=== PATIENT | male | born 1930 | race Caucasian/White ===

== ENCOUNTER 2017-05-14 13:01 | Emergency (ER) | payer MEDICARE ==
[~2017-05-14] VITALS: Ht 170.2 cm; Wt 63.5 kg
[2017-05-14] MEDS ORDERED: Ampicillin/Sulbactam Sod 3 GM in NS 110 ML IV SCH (13:15)
[2017-05-14] MEDS ORDERED: Albuterol/Ipratropium 3ml neb HHN ONE (13:30)
[2017-05-14] MEDS ORDERED: Unasyn 3gm Inj ONE (13:32)
[2017-05-14 13:41] VITALS: BP 134/78
[2017-05-14] MEDS ORDERED: METOPROLOL TART25 MG ORAL (14:00)
[2017-05-14] MEDS ORDERED: GABAPENTIN100 MG ORAL (14:00)
[2017-05-14] MEDS ORDERED: FUROSEMIDE20 M1 ORAL (14:00)
[2017-05-14] MEDS ORDERED: TYLENOL EXTRA500 MG ORAL (14:00)
[2017-05-14] MEDS ORDERED: DULCOLAX10 MG RC (14:00)
[2017-05-14] MEDS ORDERED: SORBITOL2000 ML IR (14:00)
[2017-05-14] MEDS ORDERED: MINERAL OIL EN133 ML RC (14:00)
[2017-05-14] MEDS ORDERED: SYMLIN600 MCG/1 SUBQ (14:00)
[2017-05-14] MEDS ORDERED: DOCUSATE SODIU100 M2 ORAL (14:00)
[2017-05-14] MEDS ORDERED: SENNA8.6 M2 PO (14:00)
[2017-05-14] MEDS ORDERED: ZANTAC150 MG ORAL (14:00)
[2017-05-14] MEDS ORDERED: LIPITOR40 MG ORAL (14:00)
[2017-05-14] MEDS ORDERED: PREDNISONE10 MG ORAL (14:00)
[2017-05-14] MEDS ORDERED: ALBUTEROL2.5 MG/3 M INH (14:00)
[2017-05-14 14:18] LABS: HEMATOCRIT 40.3 % (42.0-52.0); MEAN CORPUSCULAR VOLUME 93 FL (80-99); PLATELET COUNT 327 K/UL (150-450); RED BLOOD COUNT 4.34 M/UL (4.70-6.10); RED CELL DISTRIBUTION WIDTH 15.9 % (11.6-14.8); WHITE BLOOD COUNT 18.8 K/UL (4.8-10.8)
[2017-05-14 14:22] LABS: APPEARANCE,URINE CLEAR; BILIRUBIN, URINE NEGATIVE (NEGATIVE); COLOR,URINE PALE YELLOW; GLUCOSE, URINE (UA) NEGATIVE (NEGATIVE); KETONES,URINE NEGATIVE (NEGATIVE); LEUKOCYTE ESTERASE ,URINE 2+ (NEGATIVE); NITRITE,URINE NEGATIVE (NEGATIVE); PH,URINE 6 (4.5-8.0); PROTEIN,URINE 3+ (NEGATIVE); UROBILINOGEN,URINE NORMAL MG/DL (0.0-1.0)
[2017-05-14 14:47] LABS: ANION GAP 14 mmol/L (5-15); BLOOD UREA NITROGEN 33 mg/dL (7-18); CALCIUM 9.3 MG/DL (8.5-10.1); CARBON DIOXIDE 25 MMOL/L (21-32); CHLORIDE 106 MMOL/L (98-107); CREATININE 1.7 MG/DL (0.55-1.30); POTASSIUM 4.5 MMOL/L (3.5-5.1); SODIUM 145 MMOL/L (136-145)
[2017-05-14 14:52] LABS: ALANINE AMINOTRANSFERASE 20 U/L (12-78); ALBUMIN 2.8 G/DL (3.4-5.0); ALBUMIN/GLOBULIN RATIO 0.8 (1.0-2.7); ALKALINE PHOSPHATASE 69 U/L (46-116); ASPARTATE AMINO TRANSFERASE 35 U/L (15-37); BILIRUBIN,TOTAL 0.6 MG/DL (0.2-1.0); CKMB 1.5 NG/ML (0.0-3.6); CREATINE KINASE 56 U/L (26-308)
[2017-05-14] MEDS ORDERED: dilTIAZem HCl 50mg/10ml Inj IVP ONE (14:56)
[2017-05-14] MEDS ORDERED: dilTIAZem HCl 25mg/5ml Inj IVP ONE (15:00)
--- NOTE | 2017-05-14 15:44 | Emergency Room Report ---
History of Present Illness General Chief Complaint: Upper Respiratory Illness Source: Patient, EMS Present Illness HPI Patient is a 87-year-old male brought in by EMS after increased difficulty breathing. Patient gradual onset of symptoms. The patient noted have prior history of lung cancer. The patient reported having increased shortness of breath. The patient was noted to have been given breathing treatment prior to arrival. He had prior history of recent pneumonia. Patient was noted to have history of atrial fibrillation. Patient states he is normally followed at [facility] Allergies: Coded Allergies: ASPIRIN (Verified Allergy, Unknown, 05/14/17) OMEPRAZOLE (Verified Allergy, Unknown, 05/14/17) Patient History Past Medical History: see triage record, COPD, pneumonia Reviewed Nursing Documentation: PMH: Agreed, PSxH: Agreed Nursing Documentation-PMH Past Medical History Deferred: Pt Cognitively Impaired Hx Cardiac Problems: Yes - AFLUTTER Hx Hypertension: Yes Hx COPD: Yes Hx Diabetes: Yes Hx Cancer: Yes - LUNG Hx Cerebrovascular Accident: Yes Review of Systems All Other Systems: negative except mentioned in HPI Physical Exam Vital Signs Date Time Temp Pulse Resp B/P (MAP) Pulse Ox O2 Delivery O2 Flow Rate FiO2 05/14/17 12:56 99.1 111 20 134/78 91 6.0 05/14/17 13:39 Nasal Cannula 28 Sp02 EP Interpretation: reviewed, normal General Appearance: normal inspection, well appearing, alert, GCS 15, moderate distress, Chronically Ill Head: atraumatic ENT: normal ENT inspection, hearing grossly normal, normal voice Neck: normal inspection, full range of motion, supple, no bony tend Respiratory: normal inspection, no respiratory distress, no retraction, rhonchi Cardiovascular #1: tachycardia, irregularly irregular, edema Gastrointestinal: normal inspection, normal bowel sounds, non tender, soft, no guarding, no hernia Genitourinary: no CVA tenderness Musculoskeletal: normal inspection, back normal, normal range of motion Neurologic: normal inspection, alert, oriented x3, responsive, speech normal Psychiatric: normal inspection, judgement/insight normal, mood/affect normal Skin: normal inspection, normal color, no rash Medical Decision Making Diagnostic Impression: Primary Impression: Pneumonia Additional Impressions: Lung cancer A-fib Hypoxemia ER Course Patient presented for shortness of breath. Differential included but was not limited to anemia, pneumonia, pneumothorax, myocardial infarction, pericardial effusion, congestive heart failure, acidosis x-ray imaging interpreted by me in one view showed cardiomegaly with large infiltrates to the right upper lobe right lower lobe and left upper lobe. The patient was given breathing treatments. Patient was noted to elevated lactate on laboratory testing as well as elevated white blood count. The patient was given IV Cardizem for atrial fibrillation with rapid ventricular with a rate of 120. The patient noted have some improvement in symptoms after treatment. ABG showed respiratory acidosis and hypoxemia . Patient was given a fluid bolus Dr. José Zamora [facility] was contacted for possible transfer Labs Test 05/14/17 13:18 05/14/17 13:30 05/14/17 14:00 Arterial Blood pH 7.480 (7.350-7.450) Arterial Blood Partial Pressure CO2 32.3 mmHg (35.0-45.0) Arterial Blood Partial Pressure O2 66.2 mmHg (75.0-100.0) Arterial Blood HCO3 23.6 mmol/L (22.0-26.0) Arterial Blood Oxygen Saturation 93.3 % (92.0-98.0) Arterial Blood Base Excess 0.8 Santiago Test Positive White Blood Count 18.8 K/UL (4.8-10.8) Red Blood Count 4.34 M/UL (4.70-6.10) Hemoglobin 13.0 G/DL (14.2-18.0) Hematocrit 40.3 % (42.0-52.0) Mean Corpuscular Volume 93 FL (80-99) Mean Corpuscular Hemoglobin 30.1 PG (27.0-31.0) Mean Corpuscular Hemoglobin Concent 32.3 G/DL (32.0-36.0) Red Cell Distribution Width 15.9 % (11.6-14.8) Platelet Count 327 K/UL (150-450) Mean Platelet Volume 8.1 FL (6.5-10.1) Neutrophils (%) (Auto) % (45.0-75.0) Lymphocytes (%) (Auto) % (20.0-45.0) Monocytes (%) (Auto) % (1.0-10.0) Eosinophils (%) (Auto) % (0.0-3.0) Basophils (%) (Auto) % (0.0-2.0) Differential Total Cells Counted 100 Neutrophils % (Manual) 88 % (45-75) Lymphocytes % (Manual) 4 % (20-45) Monocytes % (Manual) 7 % (1-10) Eosinophils % (Manual) 0 % (0-3) Basophils % (Manual) 0 % (0-2) Band Neutrophils 1 % (0-8) Platelet Estimate Adequate Platelet Morphology Normal Anisocytosis 1+ Sodium Level 145 MMOL/L (136-145) Potassium Level 4.5 MMOL/L (3.5-5.1) Chloride Level 106 MMOL/L (98-107) Carbon Dioxide Level 25 MMOL/L (21-32) Anion Gap 14 mmol/L (5-15) Blood Urea Nitrogen 33 mg/dL (7-18) Creatinine 1.7 MG/DL (0.55-1.30) Estimat Glomerular Filtration Rate mL/min (>60) Glucose Level 149 MG/DL (74-106) Lactic Acid Level 2.90 mmol/L (0.66-2.22) Calcium Level 9.3 MG/DL (8.5-10.1) Total Bilirubin 0.6 MG/DL (0.2-1.0) Aspartate Amino Transf (AST/SGOT) 35 U/L (15-37) Alanine Aminotransferase (ALT/SGPT) 20 U/L (12-78) Alkaline Phosphatase 69 U/L (46-116) Total Creatine Kinase 56 U/L (26-308) Creatine Kinase MB 1.5 NG/ML (0.0-3.6) Creatine Kinase MB Relative Index 2.6 Troponin I 0.076 ng/mL (0.000-0.056) Pro-B-Type Natriuretic Peptide 6301 pg/mL (0-125) Total Protein 6.3 G/DL (6.4-8.2) Albumin 2.8 G/DL (3.4-5.0) Globulin 3.5 g/dL Albumin/Globulin Ratio 0.8 (1.0-2.7) Urine Color Pale yellow Urine Appearance Clear Urine pH 6 (4.5-8.0) Urine Specific [place] 1.010 (1.005-1.035) Urine Protein 3+ (NEGATIVE) Urine Glucose (UA) Negative (NEGATIVE) Urine Ketones Negative (NEGATIVE) Urine Occult Blood 1+ (NEGATIVE) Urine Nitrite Negative (NEGATIVE) Urine Bilirubin Negative (NEGATIVE) Urine Urobilinogen Normal MG/DL (0.0-1.0) Urine Leukocyte Esterase 2+ (NEGATIVE) Urine RBC 0-2 /HPF (0 - 0) Urine WBC 2-4 /HPF (0 - 0) Urine Squamous Epithelial Cells Occasional /LPF Urine Bacteria Occasional /HPF (NONE) EKG Diagnostic Results Rate: tachycardiac Rhythm: other - afib Rhythm Strip Diag. Results EP Interpretation: yes Rhythm: NSR, no PVC's, no ectopy Last Vital Signs Date Time Temp Pulse Resp B/P (MAP) Pulse Ox O2 Delivery O2 Flow Rate FiO2 05/14/17 15:03 123 134/78 05/14/17 13:48 23 95 Nasal Cannula 2.0 28 05/14/17 13:41 99.1 Status: unchanged Disposition: XFER SHT-TRM HOSP Condition: Serious Referrals: NON PHYSICIAN (PCP) Haseeb Wilson May 14, 2017 15:44
[2017-05-14 15:48] VITALS: BP 116/56
[2017-05-14 17:01] VITALS: BP 122/79
[2017-05-14 18:25] VITALS: BP 122/79
--- NOTE | 2017-05-15 07:56 | Diagnostic Imaging Report ---
Indication: Shortness of breath Technique: XRAY Chest 1v Comparison: None Findings: Heart is enlarged. Atherosclerotic calcifications noted in an ectatic and tortuous aorta. There is interstitial opacification/edema and patchy bilateral airspace opacities involving the right midlung, left midlung and right lower lung. There is more dense consolidation in the right midlung. There is no pneumothorax. There is question of trace right pleural effusion. There is osteopenia and multilevel degenerative change of the spine. Impression: Cardiomegaly with interstitial opacification and bilateral airspace opacities. Findings may be related to CHF, however density of the airspace opacities raises question for pneumonia. Clinical correlation and follow-up exam recommended. This corresponds with the preliminary interpretation by the treating ER physician with minor variance. Patient transferred to another facility ([facility]) at time of dictation of the final report.
== END 2017-05-14 18:28 | disposition short-term general hospital (02) ==
LOC: EDBD 13:01 → EMR 13:30
DX: J18.9 Pneumonia, unspecified organism (principal); C34.90 Malignant neoplasm of unspecified part of unspecified bronchus or lung; I48.91 Unspecified atrial fibrillation; R09.02 Hypoxemia; E87.2 Acidosis; I10 Essential (primary) hypertension; E11.9 Type 2 diabetes mellitus without complications; Z88.8 Allergy status to other drugs, medicaments and biological substances; Z86.73 Personal history of transient ischemic attack (TIA), and cerebral infarction without residual deficits
CPT/HCPCS: 36415; 36600; 71045; 80053; 81003; 82550; 82553; 82803; 83605; 83880; 84484; 85007; 85025; 87040; 94640; 94664; 96361; 96365; 96375; 99284; J7620